=== PATIENT | female | born 1975 | race Caucasian/White ===

== ENCOUNTER → 2016-11-17 | Outpatient (CLI) | payer BC ==
[~2016-11-17] MED LIST: LISINOPRIL 5MG T5 MG NG; METFORMIN HYDR750 MG PO
[2016-11-17 13:55] LABS: BUN 12 mg/dL (7-18)
[2016-11-17 14:06] LABS: GFR (ESTIMATED) 92 ML/MIN (59-)
== END ==
LOC: LAB 08:24
PROVIDERS: Nurse Practitioner Family
DX: R73.09 Other abnormal glucose (principal); I10 Essential (primary) hypertension; E28.2 Polycystic ovarian syndrome